=== PATIENT | male | born 1950 | race Caucasian/White ===

== ENCOUNTER 2017-04-16 17:58 | Emergency (ER) | payer MEDICARE ==
[~2017-04-16] VITALS: Ht 167.6 cm; Wt 100.0 kg
[2017-04-16 18:31] VITALS: BP 159/83; PULSE 66; RESP 14; O2SAT 97
--- NOTE | 2017-04-16 19:40 | ED.REPORT ---
HPI-Back Pain 40 and Over Date of Service Apr 16, 2017 ED Provider: Doc,Ed MD History of Present Illness: 66-year-old male here for low back pain. 2 days. Onset after changing a flat tire. He lives in his RV and sits a lot. His home base is in [place], [place]. He is traveling to [place] in 2 days. Denies numbness and tingling, nausea, vomiting, chest pain or shortness of breath. Pain radiated down from right low back to the right buttocks. He has had pain like this in the past but not as severe. Nursing Notes Stated Complaint: LOW BACK PAIN Chief Complaint: Back Pain or Injury Nursing Notes Reviewed: Yes Allergies: Uncoded Allergies: SULFA (Allergy, Intermediate, 04/16/17) PENICILLIN (Allergy, Unknown, 04/16/17) Scheduled PRN Acetaminophen/Codeine 300-30mg (Tylenol/Codeine #3) 1 Each Tablet 1 TABLET PO Q4H PRN PRN Pain Cyclobenzaprine (Cyclobenzaprine) 10 Mg Tablet 10 MG PO HS PRN PRN Spasm General Time Seen by MD: 19:34 Chief Complaint Back pain Hx Obtained From: Patient Arrived By: Walk-in Sudden in Onset?: Yes Onset Occurred: 2 days ago Symptom Duration: Since onset Caused by: Spontaneous/no mechanism Location: : Spinal lumbar area Severity: Current: Moderate Severity: Maximum: Moderate Recent Healthcare: No recent doctor visit Similar Sx Previous: Yes Past Medical History Past Medical History Notes: open heart surgery 2007, HTN, DM, Review of Systems Constitutional: Denies: Fever Respiratory: Denies: Dyspnea on exertion Cardiovascular: Denies: Chest pain, Edema GI: Denies: Abdominal pain, Nausea, Vomiting Musculoskeletal: Reports: Back pain Complete sys rev & neg: except as marked. Physical Exam Initial Vital Signs Vital Signs (First) Date Time Temp Pulse Resp B/P Pulse Ox O2 Delivery O2 Flow Rate FiO2 04/16/17 18:31 36.9 66 14 159/83 97 Room Air Initial VS: Reviewed, Vital signs normal General/Constitutional: Awake, Alert Respiratory / Chest: Breath sounds NL, Breath sounds = bilat, No respiratory distress, No rales, No rhonchi, No wheezing Cardiovascular: Heart rate NL, Regular rhythm, Heart sounds NL, No murmurs, Peripheral circulation NL Abdomen: Soft, Non-tender, No guarding, No rebound, No distention, No palpable mass, No pulsatile mass Back: Atraumatic, Inspection NL, No midline vertebral tend Moderate pain to palpation in right paraspinal tenderness in the lumbar area. Forward bend to about 30 before significant pain. Lower extremity strength is equal and strong bilaterally. Patient can walk with a slight limp. Changing positions as painful. Neurologic: Oriented X3, Speech NL, No motor deficits, No sensory deficits, Reflexes equal bilat Discharge & Departure Impression: Primary Impression: Sciatica of right side Disposition: Home Discharge Condition All VS Reviewed: Yes Condition: Stable Patient Instructions: Low Back Strain (ED), Sciatica (ED) Additional Instructions: Use Tylenol as needed for pain. 1 g every 8 hours as needed. Use Tylenol No. 3 's sporadically for pain. Do not exceed 1 g of acetaminophen every 8 hours. Muscle relaxers as needed at night. Frequent position changes. Try not to lay in the back for any length of time. Get up and walk, lie down frequently. Referrals: NOPCP (PCP) EDSupervising Provider for APC: Stefano Altman Linnea K ARNP Apr 16, 2017 19:40
[2017-04-16] MEDS ORDERED: ACET1TAB12 PO (19:50)
[2017-04-16] MEDS ORDERED: CYCL10TA9 PO (19:51)
[2017-04-16 20:22] VITALS: BP 152/82; PULSE 78; RESP 16; O2SAT 97
== END 2017-04-16 20:10 | disposition home or self-care (01) ==
LOC: SED 17:58
DX: M54.31 Sciatica, right side (principal)